=== PATIENT | male | born 1980 | race Caucasian/White ===

== ENCOUNTER 2018-04-07 17:35 | Emergency (ER) | payer BC ==
[~2018-04-07] VITALS: Ht 160 cm; Wt 50.8 kg
[2018-04-07 17:40] VITALS: BP 129/88
--- NOTE | 2018-04-07 17:48 | NUR ---
PATIENT AMBULATED TO ER BED 7.
--- NOTE | 2018-04-07 18:01 | NUR ---
38y/m bib caregiver with c/o diarrhea, excess gas, and fevers x 2-3 days. Caregiver denies any n/v. pt aaox4, vss at thsi time, bed down, bedrail up x 1, er md aware and notified of pt status. hx: short bowel syndrome, cerebral palsy, intellectual disability, legally blind, sbo rx: xanax prn
--- NOTE | 2018-04-07 19:05 | NUR ---
ASSUMED CARE OF PT AT THIS TIME. PT AWAITS MD WALL. MADALYN. VSS. CAREGIVER AT BEDSIDE. WILL CONTINUE TO MONITOR.
--- NOTE | 2018-04-07 19:31 | NUR ---
Dr. Espinal evaluating patient at bedside.
[2018-04-07] MEDS ORDERED: NACL 0.9% 1,000 ML IV ONE (19:42)
[2018-04-07 20:06] LABS: BASOPHILS % (AUTO) 0.1 % (0.0-2.0); EOSINOPHILS # (AUTO) 0.1 K/uL (0-0.4); EOSINOPHILS % (AUTO) 1.4 % (0.0-4.0); HEMOGLOBIN 16.7 g/dL (12.0-18.0); LYMPHOCYTES # (AUTO) 0.8 K/uL (2.0-11.5); LYMPHOCYTES % (AUTO) 10.3 % (20.5-51.1); MEAN CORPUSCULAR HEMOGLOBIN 29 pg (27-31); MEAN CORPUSCULAR HGB CONC 33 g/dL (33-37); MEAN CORPUSCULAR VOLUME 86.3 fL (80-94); MONOCYTES # (AUTO) 1.1 K/uL (0.8-1.0); MONOCYTES % (AUTO) 14.8 % (1.7-9.3); NEUTROPHILS # (AUTO) 5.5 K/uL (1.8-7.7); NEUTROPHILS % (AUTO) 73.4 % (42.2-75.2); PLATELET COUNT (AUTO) 176 K/uL (140-450); RED BLOOD CELL COUNT(AUTO) 5.79 MIL/uL (4.20-6.10); RED CELL DISTRIBUTION WIDTH 13.8 % (11.6-13.7); WHITE BLOOD COUNT (AUTO) 7.5 K/uL (4.8-10.8)
--- NOTE | 2018-04-07 20:19 | NUR ---
PT TAKEN TO CT
--- NOTE | 2018-04-07 20:27 | NUR ---
PT RETURN FROM CT
[2018-04-07 20:29] LABS: ANION GAP 12.1 (8-16); CARBON DIOXIDE 24.6 mmol/L (21-32); POTASSIUM 3.7 mmol/L (3.5-5.1)
[2018-04-07 20:36] LABS: ALBUMIN 3.7 g/dL (3.4-5.0); TOTAL BILIRUBIN 1.4 mg/dL (0.0-1.0)
[2018-04-07 21:05] VITALS: BP 118/72
--- NOTE | 2018-04-07 21:05 | NUR ---
Patient discharged with v/s stable. Written and verbal after care instructions given and explained. Patient alert, oriented and verbalized understanding of instructions. Ambulatory with steady gait. All questions addressed prior to discharge. ID band removed. Patient advised to follow up with PMD. Rx of LOPERAMIDE, KONSYL, AND DICYCLOMINE given. Patient educated on indication of medication including possible reaction and side effects. Opportunity to ask questions provided and answered.
== END 2018-04-07 21:05 | disposition home or self-care (01) ==
LOC: MED 17:35
DX: K52.9 Noninfective gastroenteritis and colitis, unspecified (principal); R63.0 Anorexia; G80.9 Cerebral palsy, unspecified; Z90.49 Acquired absence of other specified parts of digestive tract; Z90.89 Acquired absence of other organs
CPT/HCPCS: 36415; 74176; 80053; 85025; 96360; 99284; J7030